=== PATIENT | female | born 1980 | race Caucasian/White ===

== ENCOUNTER 2020-01-11 02:41 | Inpatient (IN) | payer BC ==
[2020-01-11] MEDS ORDERED: METHYLERGONOVINE 0.2 MG/ML 1 ML AMP IM PRN (03:33)
[2020-01-11] MEDS ORDERED: LIDOCAINE 0.5% (PF) 5 MG/ML (50 ML SDV) SQ PRN (03:33)
[2020-01-11] MEDS ORDERED: TERBUTALINE 1 MG/ML VIAL SQ PRN (03:33)
[2020-01-11] MEDS ORDERED: CARBOPROST TROMETHAMINE 250 MCG/ML 1 ML AMP IM PRN (03:33)
[2020-01-11] MEDS ORDERED: OXYTOCIN 10 UNIT/ML 1 ML VIAL IM PRN (03:33)
[2020-01-11] MEDS ORDERED: LACTATED RINGERS 1,000 ML IV SCH (03:45)
[2020-01-11] MEDS ORDERED: OXYTOCIN 30 UNITS/500 ML NS 30 UNIT in SALINE 1 500ML.BAG IV SCH (03:45)
[2020-01-11 04:11] LABS: Basophils % (A) 0 %; Eosinophils # (A) 0.1 k/uL (0-0.7); Eosinophils % (A) 2 %; HGB 11.7 gm/dL (11.4-16.0); Lymphocytes # (A) 1.2 k/uL (1.0-4.8); Lymphocytes % (A) 18 %; MCH 27.4 pg (25.0-35.0); MCHC 32.4 g/dL (31.0-37.0); MCV 84.5 fL (80.0-100.0); Monocytes # (A) 0.4 k/uL (0-1.0); Monocytes % (A) 6 %; Neutrophils # (A) 4.9 k/uL (1.3-7.7); Neutrophils % (A) 72 %; Platelet Count 128 k/uL (150-450); RBC 4.26 m/uL (3.80-5.40); RDW 14.2 % (11.5-15.5); WBC 6.7 k/uL (3.8-10.6)
[2020-01-11 04:19] VITALS: RESP 16
[2020-01-11] MEDS ORDERED: BUTORPHANOL 1 MG/ML 1 ML VIAL IV PRN (05:09)
[2020-01-11] MEDS ORDERED: ZOLPIDEM 5 MG TAB PO PRN (09:51)
[2020-01-11] MEDS ORDERED: ACETAMINOPHEN TAB 325 MG TAB PO PRN (09:51)
[2020-01-11] MEDS ORDERED: HYDROCORTISONE 2.5% RECTAL CREAM 30 GM TUBE RECTAL PRN (09:51)
[2020-01-11] MEDS ORDERED: BENZOCAINE/MENTHOL SPRAY 1 GM/SPRAY AEROSOL TOPICAL PRN (09:51)
[2020-01-11] MEDS ORDERED: LANOLIN CREAM 5 GM TUBE TOPICAL PRN (09:51)
[2020-01-11] MEDS ORDERED: SIMETHICONE 80 MG CHEWABLE PO PRN (09:51)
[2020-01-11] MEDS ORDERED: diphenhydrAMINE 25 MG CAP PO PRN (09:51)
[2020-01-11] MEDS ORDERED: diphenhydrAMINE 50 MG CAP PO PRN (09:51)
[2020-01-11] MEDS ORDERED: diphenhydrAMINE 50 MG/ML 1 ML VIAL IVP PRN ×2 (09:51)
[2020-01-11] MEDS ORDERED: HYDROcodone/APAP 5-325MG 1 EACH TAB PO PRN (09:51)
--- NOTE | 2020-01-11 09:55 | P.HPOB ---
History of Present Illness H&P Date: 01/11/20 Chief Complaint: IUP at 38 and 5/sevenths weeks, spontaneous rupture of membrane this is a 39-year-old 3 para 2001 at 38-5/7 weeks that presented to labor and delivery with complaints of spontaneous rupture of membranes. Patient noted the fluid to be clear at home. Patient presented to labor and delivery and was noted to be 4 cm dilated with positive amnio sure consistent with rupture of membranes. Patient has been receiving routine care which has been essentially uncomplicated. Patient is 2 prior normal spontaneous vaginal deliveries. Patient has noted good movement. blood type noted to be A+, rubella status immune, hepatitis B surface antigen negative, RPR nonreactive, group beta strep negative. Review of Systems Constitutional: Denies fatigue, Denies fever Ears, nose, mouth and throat: Denies headache Cardiovascular: Denies leg edema Gastrointestinal: Denies constipation, Denies diarrhea, Denies nausea, Denies vomiting Genitourinary: Reports Past Medical History Past Medical History: No Reported History History of Any Multi-Drug Resistant Organisms: None Reported Past Surgical History: No Surgical Hx Reported Past Anesthesia/Blood Transfusion Reactions: No Reported Reaction Past Psychological History: No Psychological Hx Reported Smoking Status: Never smoker - Past Family History Mother Family Medical History: Asthma Father Family Medical History: Diabetes Mellitus Medications and Allergies Home Medications Medication Instructions Recorded Confirmed Type Cetirizine HCl [Zyrtec] 1 tab PO DAILY PRN 01/11/20 01/11/20 History Pnv,Calcium 72/Iron/Folic Acid 1 tab PO DAILY 01/11/20 01/11/20 History [ Plus Tablet] Allergies Allergy/AdvReac Type Severity Reaction Status Date / Time No Known Allergies Allergy Verified 01/11/20 02:43 Exam Osteopathic Statement: *. No significant issues noted on an osteopathic structural exam other than those noted in the History and Physical/Consult. 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 On cervical exam she is 7-8, 80, -1 Results Result Diagrams: 01/11/20 03:15 Abnormal Lab Results - Last 24 Hours (Table) 01/11/20 Range/Units 03:15 Plt Count 128 L (150-450) k/uL Assessment and Plan (1) Term Current Visit: Yes Status: Acute Code(s): Z34.90 - ENCNTR FOR SUPRVSN OF NORMAL , UNSP, UNSP TRIMESTER SNOMED Code(s): 68201009 (2) SROM (spontaneous rupture of membranes) Current Visit: Yes Status: Acute Code(s): ORU7554 - SNOMED Code(s): 246679754
--- NOTE | 2020-01-11 09:59 | P.PROBDLV ---
Vaginal Delivery Note - . Vaginal Delivery Note: this is a 39-year-old 3 para 2000 that presented to labor and delivery at 38-6/7 weeks with complaints of spontaneous rupture of membranes, clear in nature. Patient was admitted to labor and delivery and Pitocin augmentation of labor was begun. Patient requested epidural which was placed with by the anesthesia Department without difficulty. Patient made slow progress through labor eventually becoming complete began pushing and had a normal spontaneous vaginal delivery of a viable female at 9:30, loose nuchal cord was delivered through. Weight is pending at the time of this dictation. After two-minute delay the umbilical cord was doubly clamped and cut and the was handed off to mom. On inspection of the patient's vaginal vault no lacerations were noted. The placenta was delivered spontaneously intact with a three-vessel cord being noted. The uterus is noted to be firm and below the umbilicus. Estimated blood loss 200 mL. Patient and tolerated delivery well and are resting comfortably All counts were noted to be correct 2 at the end of the delivery.
[2020-01-11] MEDS ORDERED: OXYTOCIN 20 UNITS/1000 ML NS 1,000 ML IV SCH (10:00)
[2020-01-11] MEDS: SENNOSIDES-DOCUSATE SODIUM 1 EACH TAB PO SCH (19:48)
[2020-01-12] MEDS: IBUPROFEN 600 MG TAB PO PRN ×2 (00:57→09:02)
[2020-01-12 06:18] LABS: Basophils % (A) 0 %; Eosinophils # (A) 0.1 k/uL (0-0.7); Eosinophils % (A) 1 %; HCT 32.8 % (34.0-46.0); HGB 10.5 gm/dL (11.4-16.0); Lymphocytes # (A) 1.1 k/uL (1.0-4.8); Lymphocytes % (A) 18 %; MCH 27.7 pg (25.0-35.0); MCV 86.6 fL (80.0-100.0); Mean Platelet Volume 9.7; Monocytes # (A) 0.3 k/uL (0-1.0); Monocytes % (A) 6 %; Neutrophils # (A) 4.3 k/uL (1.3-7.7); Neutrophils % (A) 73 %; Platelet Count 110 k/uL (150-450); RBC 3.79 m/uL (3.80-5.40); RDW 14.2 % (11.5-15.5); WBC 5.9 k/uL (3.8-10.6)
[2020-01-12 08:11] VITALS: BP 104/66; PULSE 72; TEMP 97.9
[2020-01-12] MEDS: SENNOSIDES-DOCUSATE SODIUM 1 EACH TAB PO SCH (08:11)
--- NOTE | 2020-01-12 08:19 | P.DS ---
Providers Date of admission: 01/11/20 03:01 Expected date of discharge: 01/12/20 Attending physician: Yin Choudhary Primary care physician: Stated None - Discharge Diagnosis(es) (1) SROM (spontaneous rupture of membranes) Current Visit: Yes Status: Acute (2) Term Current Visit: Yes Status: Acute (3) Normal spontaneous vaginal delivery Current Visit: Yes Status: Acute (4) Nuchal cord Current Visit: Yes Status: Acute Hospital Course: This is a 39-year-old 3 now para 3 woman who is admitted at 38-6/7 weeks' gestation with spontaneous rupture of membranes in early active labor. She received Pitocin augmentation as well as an eventual epidural anesthetic. She went on to deliver a liveborn female infant over an intact perineum weighing 7 lbs. 10 oz. with Apgars of 8 at 1 minute and 9 at 5 minutes. Her course was unremarkable. She was by day #1 ambulating and voiding without difficulty. Her lochia was minimal. She was breast-feeding successfully. And her vital signs and blood work were within normal limits. She was therefore discharged home with routine instructions for care and follow-up. Patient Condition at Discharge: Good Plan - Discharge Summary New Discharge Prescriptions: No Action Pnv,Calcium 72/Iron/Folic Acid [ Plus Tablet] 1 tab PO DAILY Cetirizine HCl [Zyrtec] 1 tab PO DAILY PRN PRN Reason: Allergy Symptoms Discharge Medication List Cetirizine HCl [Zyrtec] 1 tab PO DAILY PRN 01/11/20 [History] Pnv,Calcium 72/Iron/Folic Acid [ Plus Tablet] 1 tab PO DAILY 01/11/20 [History] Follow up Appointment(s)/Referral(s): Yin Choudhary MD [STAFF PHYSICIAN] - 6 Weeks Activity/Diet/Wound Care/Special Instructions: Follow-up in the office in 6 weeks . Call with any concerning signs or symptoms including heavy vaginal bleeding, severe abdominal pain, fever greater than 101, swelling or redness of the lower extremities, foul vaginal discharge, or signs of depression. Nothing in the vagina for 6 weeks after delivery, specifically no intercourse. Discharge Disposition: HOME SELF-CARE
[2020-01-12] MEDS ORDERED: PRENATAL VIT-IRON-FOLIC ACID 1 EACH CAP PO SCH (09:00)
== END 2020-01-12 11:10 | disposition home or self-care (01) | DRG 807 ==
LOC: FBPOP 02:41 → 4FBP 03:01
PROVIDERS: ADMIT Obstetrics & Gynecology Obstetrics; ATTEND Obstetrics & Gynecology
PROC: 00HU33Z Insertion of Infusion Device into Spinal Canal, Percutaneous Approach (ICD-10-PCS; principal; 2020-01-11)
PROC: 3E0R3NZ Introduction of Analgesics, Hypnotics, Sedatives into Spinal Canal, Percutaneous Approach (ICD-10-PCS; principal; 2020-01-11)
PROC: 10E0XZZ Delivery of Products of Conception, External Approach (ICD-10-PCS; principal; 2020-01-11)
DX: O69.81X0 Labor and delivery complicated by cord around neck, without compression, not applicable or unspecified (principal); Z37.0 Single live birth; Z3A.38 38 weeks gestation of pregnancy; Z82.5 Family history of asthma and other chronic lower respiratory diseases; Z83.3 Family history of diabetes mellitus
CPT/HCPCS: 59025; 84112; 85025; 86850; 86900; 86901; 99213

== ENCOUNTER → 2021-08-19 | Outpatient (CLI) | payer BC ==
--- NOTE | 2021-08-22 09:09 | MM ---
Reason for exam: screening (asymptomatic). Baseline mammogram. Physical Findings: A clinical breast exam by your physician is recommended on an annual basis and results should be correlated with mammographic findings. MG 3D Screening Mammo W/Cad Bilateral CC and MLO view(s) were taken. The breast tissue is heterogeneously dense. This may lower the sensitivity of mammography. 1.3cm far upper outer quadrant right breast. ASSESSMENT: Incomplete: need additional imaging evaluation, BI-RAD 0 RECOMMENDATION: Ultrasound of the right breast. [facility] will attempt to contact patient to return for ultrasound.
== END | disposition home or self-care (01) ==
LOC: RADMAMWWP 16:11
PROVIDERS: ATTEND Obstetrics & Gynecology
DX: Z12.31 Encounter for screening mammogram for malignant neoplasm of breast (principal)
CPT/HCPCS: 77063; 77067

== ENCOUNTER → 2021-09-06 | Outpatient (CLI) | payer BC ==
--- NOTE | 2021-09-06 15:39 | USB ---
Patient History: Menarche at age 15. First Full-Term at age 29. Risk Values: Zoya 5 year model risk: 0.6%. NCI Lifetime model risk: 10.2%. Prior Study Comparison: 08/19/2021 Bilateral Screening Mammogram, [facility]. Findings: The upper outer quadrant of the right breast, the axilla of the right breast and the retroareolar of the right breast were scanned. Finding 1: Mass. Laterality: Right. Non-Palpable Abnormality visualized. Size 14 x 10 x 15 mm. 10 O'clock Quadrant: Upper outer. 10 cm cm from nipple. This is located 10 cm from the nipple and a circumscribed hypoechoic with some posterior through transmission noted. This corresponds well to the mammographic finding. No other solid or cystic lesion or axillary lymphadenopathy. Overall Assessment: Suspicious, BI-RAD 4 Management: Ultrasound Core Biopsy of the right breast. Findings and impression were communicated to the patient at the time of the exam.
== END | disposition home or self-care (01) ==
LOC: RADUSWWP 14:56
PROVIDERS: ATTEND Obstetrics & Gynecology
DX: R92.8 Other abnormal and inconclusive findings on diagnostic imaging of breast (principal)

== ENCOUNTER → 2021-09-14 | Day surgery (SDC) | payer BC ==
--- NOTE | 2021-09-20 12:15 | USB ---
Reason for Exam: Post Procedure Mammogram. Last screening mammogram was performed less than 1 month ago. Patient History: Menarche at age 15. First Full-Term at age 29. Risk Values: Zoya 5 year model risk: 0.6%. NCI Lifetime model risk: 10.2%. Film Views: Right CC views were taken. Right MLO views were taken. Prior Study Comparison: 08/19/2021 Bilateral Screening Mammogram, [facility]. Tissue Density: Right: The breast tissue is heterogeneously dense. This may lower the sensitivity of mammography. Pathology Description: Location: 10 o'clock, upper outer quadrant. Marker Left Behind. Needle Type: Mammotome Cores: 6 Skin Nicks: 1 Gauge: 13 The procedure of ultrasound guided core biopsy was explained to the patient. Benefits, alternatives, and risks were discussed. An informed consent was then obtained. Timeout was performed. The patient was placed in supine positioning for imaging and for the procedure. The overlying skin was prepped and draped in usual sterile fashion. 7 mL Lidocaine was used as anesthetic into the skin and subcutaneous tissue up to area of concern in the right breast. A or[place] was made with surgical scalpel. Under ultrasound guidance, a 12-gauge vacuum assisted biopsy gun device was used to obtain 6 core samples. Following this, a biopsy clip was left in lesion. Hydromark was placed. The patient tolerated the procedure well without any immediate complication. The patient was kept in the radiology department for short stay after the procedure and then discharged home in stable condition. Impression: 1. Successful ultrasound core biopsy right breast lesion. RF recommendations: 1. Recommendations are pending pathology results. Pathology Results: Result: Benign, Fibroadenoma. RIGHT BREAST, TEN O'CLOCK, CORE BIOPSY: Benign fibroadenoma. Overall Assessment: Benign Assessment: MG diagnostic mammo RT wo CAD - Right: Benign, BI-RAD 2. Management: Diagnostic Mammogram of the right breast in 6 months. Can consider excision if symptomatic of if growth is noted. Electronically signed and approved by: Marek Smith D.O. Radiologis
== END ==
LOC: RADUSWWP 07:48
PROVIDERS: ATTEND Student in an Organized Health Care Education/Training Program
DX: D24.1 Benign neoplasm of right breast (principal); R92.8 Other abnormal and inconclusive findings on diagnostic imaging of breast
CPT/HCPCS: 88305; 77065; 19083; A4648

== ENCOUNTER → 2022-12-01 | Outpatient (CLI) | payer BC | END | disposition home or self-care (01) | LOC: LABWHC1 07:29 | PROVIDERS: ATTEND Obstetrics & Gynecology | DX: Z53.9 Procedure and treatment not carried out, unspecified reason (principal) ==

== ENCOUNTER → 2022-12-01 | Outpatient (CLI) | payer BC ==
--- NOTE | 2022-12-01 07:55 | MM ---
Reason for Exam: Additional evaluation requested from prior study. Last mammogram was performed 1 year(s) and 4 month(s) ago. Patient History: Menarche at age 15. First Full-Term at age 29. Premenopausal. Patient has history of breast feeding. 09/14/2021, Benign US biopsy breast VAD RT on the right side. Last menstrual period: 11/27/2022 Risk Values: Zoya 5 year model risk: 1.0%. NCI Lifetime model risk: 12.2%. Prior Study Comparison: 08/19/2021 Bilateral Screening Mammogram, [facility]. 09/14/2021 Right MG diagnostic mammo RT wo CAD, [facility]. Tissue Density: The breast tissue is heterogeneously dense. This may lower the sensitivity of mammography. Findings: Analyzed By CAD. A sample the mass upper outer quadrant right breast compatible with fibroadenoma is again noted and appears to be smaller in size. No new masses seen. No suspicious calcifications noted. Overall Assessment: Benign, BI-RAD 2 Management: Screening Mammogram of both breasts in 1 year. . Results were given to the patient verbally at the time of exam. Patient should continue monthly self-breast exams. A clinical breast exam by your physician is recommended on an annual basis. This exam should not preclude additional follow-up of suspicious palpable abnormalities. Note on Zoya scores and lifetime risk: 1. A Zoya score greater than 3% is considered moderate risk. If this is the case, consider specialist referral to assess eligibility for a risk reducing agent. 2. If overall lifetime risk for the development of breast cancer is 20% or higher, the patient may qualify for future screening with alternating mammogram and breast MRI. Electronically signed and approved by: Prakash Stroud M.D. Radiologis
[2022-12-01 13:15] LABS: HCT 40.4 % (37.2-46.3); HGB 13.5 d/dL (12.0-15.0); MCH 28.8 pg (27.0-32.0); MCHC 33.4 d/dL (32.0-37.0); MCV 86.3 FL (80.0-97.0); Mean Platelet Volume 11.4 FL (9.5-12.2); NRBC Per 100 WBC 0 X 10*3/uL (0.00-0.01); Platelet Count 154 X 10*3/uL (140-440); RBC 4.68 X 10*6/uL (4.10-5.20); RDW 12.2 % (11.5-14.5)
[2022-12-01 13:49] LABS: % Iron Saturation 21.39 (12.00-45.00); ALT 41 U/L (8-44); AST 34 U/L (13-35); Albumin 4.6 d/dL (3.8-4.9); Albumin/Globulin Ratio 1.84 Ratio (1.60-3.17); Alkaline Phosphatase 62 U/L (41-126); BUN/Creat Ratio 21.25 Ratio (12.00-20.00); Calcium 9.4 mg/dL (8.7-10.3); Carbon Dioxide 25.2 mmol/L (21.6-31.8); Chloride 102 mmol/L (96-109); Chol/HDL Ratio 6.43 Ratio; Globulin 2.5 d/dL (1.6-3.3); Glucose 105 mg/dL (70-110); Iron 77 UG/DL (50-170); LDL Cholesterol,Calculated 168.7 mg/dL (0.0-131.0); Magnesium 2.1 mg/dL (1.5-2.4); Phosphorus 4.1 mg/dL (2.4-5.1); Potassium 4.3 mmol/L (3.5-5.5); Sodium 139 mmol/L (135-145); T4, Free (Free Thyroxine) 1.38 ng/dL (0.80-1.80); Total Bilirubin 0.3 mg/dL (0.3-1.2); Total Iron Binding Capacity 360 UG/DL (228-460); Total Protein 7.1 d/dL (6.2-8.2)
[2022-12-01 19:59] LABS: Erythrocyte Sedimentation Rate 9 mm/Hr (0-20)
[2022-12-01 22:13] LABS: Appearance,Urine Clear (Clear); Bilirubin,Urine Negative (Negative); Blood,Urine Negative (Negative); Color,Urine Yellow (Yellow); Ketones,Urine Negative (Negative); Nitrite,Urine Negative (Negative); Specific Gravity,Urine 1.029 (1.001-1.030)
== END | disposition home or self-care (01) ==
LOC: RADMAMWWP 06:49
PROVIDERS: ATTEND Obstetrics & Gynecology
DX: R92.8 Other abnormal and inconclusive findings on diagnostic imaging of breast (principal)
CPT/HCPCS: 77062; 77066; 80053; 80061; 81003; 82306; 82607; 82728; 83036; 83540; 83550; 83735; 84100; 84439; 84443; 84481; 85027; 85652; 86140; 86376

== ENCOUNTER → 2023-08-14 | Outpatient (CLI) | payer OTHER ==
--- NOTE | 2023-08-14 10:20 | XR ---
EXAMINATION TYPE: XR Hip Complete RT DATE OF EXAM: 08/14/2023 CLINICAL HISTORY: pain TECHNIQUE: AP and frogleg views of the right hip are obtained. COMPARISON: None. FINDINGS: There is no acute fracture/dislocation evident. The joint space appears within normal li mits. The overlying soft tissue appears unremarkable. IMPRESSION: 1. There is no acute fracture or dislocation. ICD 10 NO FRACTURE, INITIAL EVALUATION
--- NOTE | 2023-08-14 10:21 | XR ---
EXAMINATION TYPE: XR lumbar spine 2 or 3V DATE OF EXAM: 08/14/2023 CLINICAL HISTORY: pain TECHNIQUE: Three views of the lumbar spine are submitted. COMPARISON: None. FINDINGS: There are 5 lumbar type vertebral bodies identified. The lumbar spine shows satisfactory alignment w ithout evidence of acute fracture or dislocation. Vertebral body heights are within normal limits. Disc spaces are within normal limits. The overlying soft tissue appears unremarkable. IMPRESSION: No acute fracture or dislocation is seen in the lumbar spine. ICD 10 NO FRACTURE, INITIAL EVALUATION
== END | disposition home or self-care (01) ==
LOC: RADXRMAIN 09:52
PROVIDERS: ATTEND Emergency Medicine
DX: S39.012A Strain of muscle, fascia and tendon of lower back, initial encounter (principal); S73.101A Unspecified sprain of right hip, initial encounter; X58.XXXA Exposure to other specified factors, initial encounter
CPT/HCPCS: 72100; 73502